=== PATIENT | male | born 1945 | race Caucasian/White ===

== ENCOUNTER → 2024-02-12 | Emergency (ER) | payer OTHER ==
[~2024-02-12] VITALS: Ht 182.9 cm; Wt 100.0 kg
[2024-02-12 04:35] VITALS: BP 167/101; PULSE 86; RESP 16; O2SAT 95
[2024-02-12] MEDS: cloNIDine HCL 0.1 MG TAB PO ONE (05:00)
== END | disposition home or self-care (01) ==
LOC: ER 04:30
DX: F41.9 Anxiety disorder, unspecified (principal); I10 Essential (primary) hypertension; F32.9 Major depressive disorder, single episode, unspecified